=== PATIENT | male | born 1980 | race American Indian/Alaskan Native ===

== ENCOUNTER 2018-02-20 13:26 | Emergency (ER) | payer OTHER ==
[2018-02-20 13:41] VITALS: BP 108/72; PULSE 76; RESP 18; TEMP 97.9; O2SAT 100
--- NOTE | 2018-02-20 14:03 | C.PDOC ---
History Of Present Illness 37 year old male patient brought to the ER by sister for detox of multi- substances. Patient does not want to the detox. Patient has records of many hospitalizations and ER visits from [facility] and [facility] for multi-substance abuse. Patient denies SI/HI. Time Seen by Provider: 02/20/18 13:48 Chief Complaint (Nursing): Medical Clearance History Per: Patient, Family (sister) History/Exam Limitations: no limitations Current Symptoms Are (Timing): Still Present Past Medical History Reviewed: Historical Data, Nursing Documentation, Vital Signs Vital Signs: Last Vital Signs Temp 97.9 F 02/20/18 13:36 Pulse 76 02/20/18 13:36 Resp 18 02/20/18 13:36 BP 108/72 02/20/18 13:36 Pulse Ox 100 02/20/18 14:03 - Medical History PMH: HIV Family History: States: No Known Family Hx - Social History Hx Alcohol Use: Yes Hx Substance Use: Yes - Immunization History Hx Tetanus Toxoid Vaccination: No Hx Influenza Vaccination: No Hx Pneumococcal Vaccination: No Review Of Systems Except As Marked, All Systems Reviewed And Found Negative. Constitutional: Positive for: Other (multi-substance abuse ) Psych: Negative for: Suicidal ideation, Other (homicidal ideation) Physical Exam - Physical Exam Appears: Non-toxic, No Acute Distress, Other (bizarre, tall, thin black male but cooperative) Skin: Normal Color, Warm, Dry Head: Atraumatic, Normacephalic Eye(s): bilateral: Normal Inspection Oral Mucosa: Moist Throat: Normal Neck: Normal ROM, Supple Chest: No Deformity Cardiovascular: Rhythm Regular Respiratory: Normal Breath Sounds Extremity: Normal ROM (x4) Neurological/Psych: Oriented x3, Normal Speech Gait: Steady ED Course And Treatment O2 Sat by Pulse Oximetry: 100 (RA) Pulse Ox Interpretation: Normal Medical Decision Making Medical Decision Making: ongoing chronic polysubstance abuse pt does not want detox pt's sister is POA- argumentative, letegious, left ED w pt without further discussion outpatient resources offered. Disposition Doctor Will See Patient In The: Office Counseled Patient/Family Regarding: Studies Performed, Diagnosis - Disposition Referrals: Alcoholics Anonymous [Outside] [facility] [Outside] [facility] [Outside] [facility] [place] [Outside] [facility] [Outside] [facility] [Outside] Disposition: HOME/ ROUTINE Disposition Time: 14:03 Condition: GOOD Additional Instructions: continue to seek outpatient resources for substance abuse Return to ED as needed. Instructions: Drug Abuse and Drug Addiction (DC), Polysubstance Abuse Forms: [employer] (French) - Clinical Impression Clinical Impression: Polysubstance abuse - Scribe Statement The provider has reviewed the documentation as recorded by the Scribe Nolan Do Provider Attestation: All medical record entries made by the Scribe were at my direction and personally dictated by me. I have reviewed the chart and agree that the record accurately reflects my personal performance of the history, physical exam, medical decision making, and the department course for this patient. I have also personally directed, reviewed, and agree with the discharge instructions and disposition.
== END 2018-02-20 14:28 | disposition home or self-care (01) ==
LOC: C.ER 13:26
DX: F19.10 Other psychoactive substance abuse, uncomplicated (principal)